=== PATIENT | male | born 1970 | race Hispanic/Latino ===

== ENCOUNTER 2021-12-07 08:11 | Inpatient (IN) | payer BC, MEDICAID, SELFPAY ==
[2021-12-07] MEDS ORDERED: Ondansetron PF 4 MG/2 ML Vial ONE ×3 (08:23→09:29)
[2021-12-07 09:17] LABS: Hemoglobin 15.8 g/dL (14.0-18.0); Mean Corpuscular HGB CONC 32.6 g/dL (32.0-36.0); Mean Corpuscular Hemoglobin 30.6 pg (27.0-31.0); Red Blood Cell (RBC) Count 5.15 mill/uL (4.70-6.10); White Blood Cell (WBC) Count 5.1 thou/uL (4.8-10.8)
[2021-12-07] MEDS ORDERED: Morphine 4 MG/ML VIAL ONE (09:29)
[2021-12-07 09:35] LABS: ALT (SGPT) 23 U/L (8-55); AST (SGOT) 19 U/L (5-34); Albumin 4.8 g/dL (3.5-5.0); Alkaline Phosphatase 146 U/L (40-110); Anion Gap 21 mmol/L (10-20); BUN (Urea Nitrogen) 24 mg/dL (8.4-25.7); Bilirubin, Total 1.1 mg/dL (0.2-1.2); Calc. Creatinine Clearance 0 mL/min (70-130); Calcium 11.2 mg/dL (7.8-10.44); Carbon Dioxide 29 mmol/L (22-29); Chloride 98 mmol/L (98-107); Estimated GFR 9; Globulin 3.7 g/dL (2.4-3.5); Glucose 107 mg/dL (70-105); Lipase 290 U/L (8-78); Potassium 4.6 mmol/L (3.5-5.1); Protein, Total 8.5 g/dL (6.0-8.3); Sodium 143 mmol/L (136-145)
[2021-12-07 09:45] LABS: #Eosinphils 0.2 thou/uL (0.0-0.7); #Lymphocytes 0.9 thou/uL (1.20-3.40); #Monocytes 0.2 thou/uL (0.11-0.59); #Neutrophils 3.8 thou/uL (1.40-6.50); %Basophils 0.3 % (0.0-1.0); %Lymphocytes 17.4 % (21.0-51.0); %Monocytes 4.2 % (0.0-10.0); %Neutrophils 75.1 % (42.0-75.0); Mean Platelet Volume 9.1 fL (7.4-10.4); Platelet Count 107 thou/uL (130-400); Platelet Morphology Comment Appears Decreased; RBC Distribution Width 12.4 % (11.5-14.5); RBC Morphology Normal
[2021-12-07 09:56] LABS: CKMB 3.1 ng/mL (0-6.6)
[2021-12-07] MEDS ORDERED: Promethazine HCl 12.5 MG in Sodium Chloride 0.9% 100 ML IVPB SCH (11:00)
[2021-12-07] MEDS ORDERED: Aspirin Chewable 81 MG TAB ONE (11:11)
[2021-12-07] MEDS ORDERED: hydrALAZINE 20 MG/ML VIAL SLOW IVP PRN (11:17)
[2021-12-07] MEDS ORDERED: Senokot S 8.6-50 MG TAB PO PRN (11:32)
[2021-12-07] MEDS ORDERED: Guaifenesin DM 100-10/5 ML UDCUP PO PRN (11:32)
[2021-12-07 12:23] LABS: Lactic Acid 3.5 mmol/L (0.5-2.2)
[2021-12-07] MEDS ORDERED: Metoclopramide HCl 10 MG/2 ML VIAL ONE (12:30)
[2021-12-07] MEDS ORDERED: traMADol HCl 50 MG TAB PO PRN (12:31)
[2021-12-07] MEDS ORDERED: Iopamidol-370 76% 500 ML 1 ML ONE (13:31)
[2021-12-07] MEDS: Sodium Chloride 0.9% 1,000 ML IV SCH (16:38)
[2021-12-07 16:48] VITALS: BMI 20.9
[2021-12-07] MEDS ORDERED: Morphine 2 MG/ML VIAL SLOW IVP PRN (18:39)
[2021-12-07 18:57] LABS: Troponin I 0.049 ng/mL (< 0.028)
[2021-12-07] MEDS: Ondansetron PF 4 MG/2 ML Vial IVP PRN (19:33)
[2021-12-07] MEDS: Famotidine 20 MG TAB PO SCH (21:21)
[2021-12-07] MEDS: Heparin 5,000 UNITS/ML VIAL SC SCH (21:21)
[2021-12-07] MEDS: Terazosin HCl 1 MG CAP PO SCH (21:28)
[2021-12-08] MEDS: Sodium Chloride 0.9% 1,000 ML IV SCH (06:00)
[2021-12-08 07:36] LABS: #Lymphocytes 0.7 thou/uL (1.20-3.40); #Monocytes 0.5 thou/uL (0.11-0.59); #Neutrophils 7.4 thou/uL (1.40-6.50); %Eosinophils 0.1 % (0.0-10.0); %Lymphocytes 8.6 % (21.0-51.0); %Monocytes 5.2 % (0.0-10.0); Hemoglobin 13.3 g/dL (14.0-18.0); Mean Corpuscular Hemoglobin 31.6 pg (27.0-31.0); Mean Corpuscular Volume 95.7 fL (78.0-98.0); Mean Platelet Volume 8.6 fL (7.4-10.4); Platelet Count 87 thou/uL (130-400); RBC Distribution Width 12.4 % (11.5-14.5); Red Blood Cell (RBC) Count 4.23 mill/uL (4.70-6.10); White Blood Cell (WBC) Count 8.6 thou/uL (4.8-10.8)
[2021-12-08 07:43] LABS: Anion Gap 20 mmol/L (10-20); BUN (Urea Nitrogen) 44 mg/dL (8.4-25.7); Calc. Creatinine Clearance 7 mL/min (70-130); Calcium 10.5 mg/dL (7.8-10.44); Carbon Dioxide 24 mmol/L (22-29); Cardiac Risk 2.7 (Less than 4.5); Chloride 103 mmol/L (98-107); Cholesterol 120 mg/dl (< 200 Desired); Estimated GFR 6; Glucose 98 mg/dL (70-105); HDL Cholesterol 45 mg/dL (>60 Neg Risk); LDL Cholesterol, Calculated 62 mg/dL; Lipase 42 U/L (8-78); Potassium 5.6 mmol/L (3.5-5.1); Sodium 141 mmol/L (136-145); Triglycerides 63 mg/dL (Less than 150)
[2021-12-08] MEDS ORDERED: hydrALAZINE 20 MG/ML VIAL SLOW IVP PRN (07:56)
[2021-12-08] MEDS ORDERED: Enoxaparin Sodium 40 MG/0.4 ML SYRINGE SC SCH (09:00)
[2021-12-08] MEDS ORDERED: Aspirin 81 mg Enteric Coated Tablet PO SCH (09:00)
[2021-12-08 09:24] LABS: HBSAg Index 0.25 S/CO (0-0.99); Hep B Core Total Ab Non-Reactive (NonReactive); Hep B Core Total Index 0.16 S/CO (0-0.79); Hep B Surf Ag Non-Reactive S/CO (NonReactive); Hep C IgG Ab Non-Reactive (NonReactive); Hep C Index 0.13 S/CO (0-0.79)
[2021-12-08 09:43] LABS: HBSAB Concentration 64.59 mIU/mL; Hep B Surf AB Reactive (NonReactive)
[2021-12-08] MEDS: Famotidine 20 MG TAB PO SCH ×2 (12:47→14:57)
[2021-12-08] MEDS: Losartan 25 MG TAB PO SCH (13:56)
[2021-12-08] MEDS: cloNIDine 0.2 MG TAB PO SCH ×2 (13:56→21:07)
[2021-12-08] MEDS: Polyethylene Glycol 3350 17 GM Packet PO SCH (13:57)
[2021-12-08] MEDS: Minoxidil 2.5 MG TAB PO SCH (13:57)
[2021-12-08] MEDS: Heparin 5,000 UNITS/ML VIAL SC SCH ×2 (14:10→14:12)
[2021-12-08] MEDS: Ondansetron PF 4 MG/2 ML Vial IVP PRN (16:45)
[2021-12-08] MEDS ORDERED: Bisacodyl 10 MG SUPP PR PRN (21:00)
[2021-12-08] MEDS: Terazosin HCl 1 MG CAP PO SCH (21:06)
[2021-12-08] MEDS: Senokot S 8.6-50 MG TAB PO SCH (21:06)
[2021-12-09 08:15] VITALS: BP 146/78; TEMP 98.8
[2021-12-09] MEDS: Losartan 25 MG TAB PO SCH (09:15)
[2021-12-09] MEDS: cloNIDine 0.2 MG TAB PO SCH (09:15)
[2021-12-09] MEDS: Polyethylene Glycol 3350 17 GM Packet PO SCH (09:15)
[2021-12-09] MEDS: Senokot S 8.6-50 MG TAB PO SCH (09:15)
[2021-12-09] MEDS: Minoxidil 2.5 MG TAB PO SCH (09:15)
[2021-12-09] MEDS: Famotidine 20 MG TAB PO SCH (09:16)
[2021-12-09 09:59] LABS: #Eosinphils 0.1 thou/uL (0.0-0.7); #Monocytes 0.4 thou/uL (0.11-0.59); #Neutrophils 4.4 thou/uL (1.40-6.50); %Basophils 0.3 % (0.0-1.0); %Lymphocytes 17.1 % (21.0-51.0); %Monocytes 7.3 % (0.0-10.0); %Neutrophils 73.3 % (42.0-75.0); Hemoglobin 13.7 g/dL (14.0-18.0); Mean Corpuscular Hemoglobin 31.4 pg (27.0-31.0); Mean Corpuscular Volume 95.4 fL (78.0-98.0); Mean Platelet Volume 8.4 fL (7.4-10.4); Platelet Count 83 thou/uL (130-400); Red Blood Cell (RBC) Count 4.37 mill/uL (4.70-6.10); White Blood Cell (WBC) Count 6.1 thou/uL (4.8-10.8)
[2021-12-09 10:12] LABS: Anion Gap 19 mmol/L (10-20); BUN (Urea Nitrogen) 44 mg/dL (8.4-25.7); Calc. Creatinine Clearance 9 mL/min (70-130); Calcium 10.3 mg/dL (7.8-10.44); Carbon Dioxide 27 mmol/L (22-29); Chloride 96 mmol/L (98-107); Estimated GFR 8; Glucose 120 mg/dL (70-105); Potassium 5.1 mmol/L (3.5-5.1); Sodium 137 mmol/L (136-145)
== END 2021-12-09 11:15 | disposition home or self-care (01) | DRG 438 ==
LOC: ERS 08:11 → T4-A 11:25
PROVIDERS: ADMIT Internal Medicine; ATTEND Internal Medicine
PROC: 5A1D70Z Performance of Urinary Filtration, Intermittent, Less than 6 Hours Per Day (ICD-10-PCS; principal; 2021-12-08)
DX: K85.90 Acute pancreatitis without necrosis or infection, unspecified (principal); N18.6 End stage renal disease; I12.0 Hypertensive chronic kidney disease with stage 5 chronic kidney disease or end stage renal disease; E87.2 Acidosis; Z20.822 Contact with and (suspected) exposure to COVID-19; E86.0 Dehydration; K59.00 Constipation, unspecified; K57.30 Diverticulosis of large intestine without perforation or abscess without bleeding; D63.1 Anemia in chronic kidney disease; D69.6 Thrombocytopenia, unspecified; R77.8 Other specified abnormalities of plasma proteins; E78.00 Pure hypercholesterolemia, unspecified; E03.9 Hypothyroidism, unspecified; E87.5 Hyperkalemia; Z99.2 Dependence on renal dialysis; Z90.49 Acquired absence of other specified parts of digestive tract; Z79.899 Other long term (current) drug therapy
CPT/HCPCS: 36415; 36416; 71045; 74177; 80048; 80053; 80061; 82553; 83605; 83690; 84484; 85025; 85379; 86140; 86704; 87040; 87340; 90935; 93005; 96365; 96367; 96375; G0257; J1644; J2270; J2405; J2550; J2765; J3490; J7050; Q9967; U0003; U0005

== ENCOUNTER 2022-03-19 13:24 | Emergency (ER) | payer BC ==
[2022-03-19 14:07] LABS: #Lymphocytes 0.8 thou/uL (1.20-3.40); #Monocytes 0.3 thou/uL (0.11-0.59); #Neutrophils 6.4 thou/uL (1.40-6.50); %Eosinophils 0.3 % (0.0-10.0); %Lymphocytes 10.8 % (21.0-51.0); %Monocytes 4.1 % (0.0-10.0); %Neutrophils 84.8 % (42.0-75.0); Hemoglobin 12.7 g/dL (14.0-18.0); Mean Corpuscular HGB CONC 32.7 g/dL (32.0-36.0); Mean Corpuscular Hemoglobin 29.9 pg (27.0-31.0); Mean Corpuscular Volume 91.4 fL (78.0-98.0); Mean Platelet Volume 8.8 fL (7.4-10.4); Platelet Count 82 thou/uL (130-400); Red Blood Cell (RBC) Count 4.27 mill/uL (4.70-6.10); White Blood Cell (WBC) Count 7.5 thou/uL (4.8-10.8)
[2022-03-19 14:21] LABS: ALT (SGPT) 16 U/L (8-55); AST (SGOT) 7 U/L (5-34); Albumin 4.5 g/dL (3.5-5.0); Alkaline Phosphatase 129 U/L (40-110); Anion Gap 24 mmol/L (10-20); BUN (Urea Nitrogen) 84 mg/dL (8.4-25.7); Bilirubin, Total 0.9 mg/dL (0.2-1.2); Calc. Creatinine Clearance 0 mL/min (70-130); Calcium 11.4 mg/dL (7.8-10.44); Carbon Dioxide 28 mmol/L (22-29); Chloride 90 mmol/L (98-107); Estimated GFR 4; Globulin 2.7 g/dL (2.4-3.5); Glucose 100 mg/dL (70-105); Lipase 69 U/L (8-78); Potassium 4.9 mmol/L (3.5-5.1); Protein, Total 7.2 g/dL (6.0-8.3); Sodium 137 mmol/L (136-145)
== END 2022-03-19 18:46 | disposition left against medical advice (07) ==
LOC: ERS 13:24
DX: R11.2 Nausea with vomiting, unspecified (principal); Z53.29 Procedure and treatment not carried out because of patient's decision for other reasons
CPT/HCPCS: 36415; 80053; 83690; 85025; 93005